=== PATIENT | female | born 1945 | race Two or more races ===

== ENCOUNTER 2018-04-18 13:39 | Emergency (ER) | payer OTHER ==
[~2018-04-18] VITALS: Ht 160 cm; Wt 83.5 kg
[2018-04-18] MEDS ORDERED: LIPITOR20 MG PO (14:08)
[2018-04-18] MEDS ORDERED: ASPIR 8181 MG PO (14:09)
[2018-04-18] MEDS ORDERED: DITROPAN XL10 MG PO (14:10)
== END 2018-04-18 20:32 | disposition home or self-care (01) ==
LOC: ER 13:39 → EDBD 14:20 → ER 14:20
DX: J45.901 Unspecified asthma with (acute) exacerbation (principal)

== ENCOUNTER 2018-04-20 14:53 | Inpatient (IN) | payer OTHER ==
[~2018-04-20] VITALS: Ht 160 cm; Wt 83.5 kg
[~2018-04-20 14:53] MED LIST: ASPIR 8181 MG PO; DITROPAN XL10 MG PO; LIPITOR20 MG PO
== END 2018-04-24 13:09 | disposition home or self-care (01) | DRG 202 ==
LOC: ER 14:53 → EDBD 15:11 → ER 15:11 → MEDJ 21:37
PROC: 4A033R1 Measurement of Arterial Saturation, Peripheral, Percutaneous Approach (ICD-10-PCS; principal; 2018-04-20)
PROC: 3E0F7GC Introduction of Other Therapeutic Substance into Respiratory Tract, Via Natural or Artificial Opening (ICD-10-PCS; 2018-04-20)
DX: J45.42 Moderate persistent asthma with status asthmaticus (principal); J44.1 Chronic obstructive pulmonary disease with (acute) exacerbation; R06.03 Acute respiratory distress

== ENCOUNTER 2019-03-31 07:06 | Outpatient (CLI) | payer OTHER | END 2019-03-31 07:12 | disposition home or self-care (01) | LOC: SONOGRAMA 07:06 | DX: E04.2 Nontoxic multinodular goiter (principal) ==

== ENCOUNTER 2019-05-22 10:11 | Emergency (ER) | payer OTHER ==
[~2019-05-22] VITALS: Ht 160 cm; Wt 83.9 kg
== END 2019-05-22 14:15 | disposition home or self-care (01) ==
LOC: ER 10:11
DX: J45.901 Unspecified asthma with (acute) exacerbation (principal)

== ENCOUNTER 2019-05-26 10:09 | Emergency (ER) | payer OTHER ==
[~2019-05-26] VITALS: Ht 160 cm; Wt 83.0 kg
== END 2019-05-26 15:53 | disposition home or self-care (01) ==
LOC: ER 10:09
DX: J45.998 Other asthma (principal)

== ENCOUNTER 2021-05-05 12:38 | Emergency (ER) | payer OTHER ==
[~2021-05-05] VITALS: Ht 160 cm; Wt 84.4 kg
[2021-05-05] MEDS ORDERED: PROAIR HFA8.5 GM IH (13:04)
[2021-05-05] MEDS ORDERED: OMEPRAZOLE40 MG PO (13:04)
[2021-05-05] MEDS ORDERED: QVAR REDIHALE10.6 G1 (13:05)
[2021-05-05] MEDS ORDERED: TENCON 50-3251 EACH PO (15:56)
== END 2021-05-05 17:45 | disposition home or self-care (01) ==
LOC: ER 12:38
DX: S00.83XA Contusion of other part of head, initial encounter (principal); S90.01XA Contusion of right ankle, initial encounter; W18.09XA Striking against other object with subsequent fall, initial encounter; Y93.89 Activity, other specified; Y92.89 Other specified places as the place of occurrence of the external cause; Y99.8 Other external cause status

== ENCOUNTER 2021-05-09 12:16 | Emergency (ER) | payer OTHER ==
[~2021-05-09] VITALS: Ht 167.6 cm; Wt 84.4 kg
[~2021-05-09 12:16] MED LIST changes: +OMEPRAZOLE40 MG PO; +PROAIR HFA8.5 GM IH; +QVAR REDIHALE10.6 G1; +TENCON 50-3251 EACH PO
[2021-05-09] MEDS ORDERED: METOCLOPRAMIDE10 MG PO (17:47)
[2021-05-09] MEDS ORDERED: KETO10TA2 PO (17:48)
== END 2021-05-09 19:47 | disposition home or self-care (01) ==
LOC: ER 12:16
DX: G89.11 Acute pain due to trauma (principal); G44.311 Acute post-traumatic headache, intractable; R42 Dizziness and giddiness

== ENCOUNTER 2021-08-27 15:04 | Emergency (ER) | payer OTHER ==
[~2021-08-27] VITALS: Ht 160 cm; Wt 82.6 kg
[~2021-08-27 15:04] MED LIST changes: +KETO10TA2 PO; +METOCLOPRAMIDE10 MG PO
== END 2021-08-27 20:35 | disposition home or self-care (01) ==
LOC: ER 15:04
DX: S70.01XA Contusion of right hip, initial encounter (principal); M79.604 Pain in right leg; R55 Syncope and collapse; W18.09XA Striking against other object with subsequent fall, initial encounter; Y93.E2 Activity, laundry; Y92.018 Other place in single-family (private) house as the place of occurrence of the external cause; Y99.8 Other external cause status

== ENCOUNTER 2021-11-01 07:30 | Inpatient (IN) | payer OTHER ==
[~2021-11-01] VITALS: Ht 160 cm; Wt 84.4 kg
[2021-11-01] MEDS ORDERED: LIPITOR PO (08:47)
[2021-11-01] MEDS ORDERED: VITAMIN B SL (08:48)
[2021-11-01] MEDS ORDERED: VITAMIN C100 MG PO (08:48)
[2021-11-01] MEDS ORDERED: CENTRUM PO (08:48)
[2021-11-01] MEDS ORDERED: CALTRATE PO (08:49)
[2021-11-05] MEDS ORDERED: FOLIC ACID0.4 MG (08:30)
[2021-11-05] MEDS ORDERED: GABAPENTIN300 M2 (08:30)
[2021-11-05] MEDS ORDERED: PROAIR HFA8.5 GM (08:32)
[2021-11-05] MEDS ORDERED: QVAR REDIHALE10.6 G1 (08:32)
[2021-11-05] MEDS ORDERED: CLOTRIMAZOLE-BE15 G1 (08:33)
[2021-11-05] MEDS ORDERED: MECLIZINE HCL25 MG (08:33)
[2021-11-05] MEDS ORDERED: OPTIVE EYE DROP15 ML (08:34)
[2021-11-05] MEDS ORDERED: RESTASIS1 EACH (08:34)
[2021-11-05] MEDS ORDERED: OMEPRAZOLE40 MG (08:34)
[2021-11-05] MEDS ORDERED: CALTRATE 600 +1 EAC1 (09:38)
[2021-11-05] MEDS ORDERED: CENTRUM ADULTS1 EACH (09:38)
[2021-11-05] MEDS ORDERED: ATORVASTATIN CA10 MG PO (09:39)
[2021-11-05] MEDS ORDERED: B COMPLEX1 EACH (09:39)
[2021-11-05] MEDS ORDERED: REFRESH OPTIVE1 EAC2 (09:40)
[2021-11-05] MEDS ORDERED: LATANOPROST2.5 ML (09:40)
[2021-11-05] MEDS ORDERED: AYR SALINE50 M2 (09:41)
[2021-11-05] MEDS ORDERED: LUMIGAN2.5 M1 (09:41)
[2021-11-05] MEDS ORDERED: B-122500 MCG (09:41)
[2021-11-07] MEDS ORDERED: PERCOCET 5-3251 EACH PO (19:08)
[2021-11-07] MEDS ORDERED: CIPRO500 MG PO (19:08)
[2021-11-07] MEDS ORDERED: ELIQUIS2.5 MG PO (19:08)
[2021-11-08] MEDS ORDERED: CIPRO500 MG PO (08:07)
[2021-11-08] MEDS ORDERED: ELIQUIS2.5 MG PO (08:07)
[2021-11-08] MEDS ORDERED: PERCOCET 5-3251 EACH PO (08:07)
== END 2021-11-08 17:54 | DRG 470 ==
LOC: SURG 11-05 06:00 → O/R 11-05 06:00 → SURH 11-05 07:00 → SURG 11-05 13:58 → SURH 11-06 15:16
PROVIDERS: ADMIT Orthopaedic Surgery; ATTEND Orthopaedic Surgery
PROC: 0SRC0J9 Replacement of Right Knee Joint with Synthetic Substitute, Cemented, Open Approach (ICD-10-PCS; principal; 2021-11-05 07:00)
DX: M17.11 Unilateral primary osteoarthritis, right knee (principal); J44.1 Chronic obstructive pulmonary disease with (acute) exacerbation; M22.11 Recurrent subluxation of patella, right knee; Z20.822 Contact with and (suspected) exposure to COVID-19; I10 Essential (primary) hypertension; J45.998 Other asthma

== ENCOUNTER 2023-07-22 07:45 | Inpatient (IN) | payer OTHER ==
[~2023-07-22] VITALS: Ht 160 cm; Wt 81.6 kg
[~2023-07-22 07:45] MED LIST changes: +ATORVASTATIN CA10 MG PO; +AYR SALINE50 M2; +B COMPLEX1 EACH; +B-122500 MCG; +CALTRATE 600 +1 EAC1; +CALTRATE PO; +CENTRUM ADULTS1 EACH; +CENTRUM PO; +CIPRO500 MG PO; +CLOTRIMAZOLE-BE15 G1; +ELIQUIS2.5 MG PO; +FOLIC ACID0.4 MG; +GABAPENTIN300 M2; +LATANOPROST2.5 ML; +LIPITOR PO; +LUMIGAN2.5 M1; +MECLIZINE HCL25 MG; +OMEPRAZOLE40 MG; +OPTIVE EYE DROP15 ML; +PERCOCET 5-3251 EACH PO; +PROAIR HFA8.5 GM; +REFRESH OPTIVE1 EAC2; +RESTASIS1 EACH; +VITAMIN B SL; +VITAMIN C100 MG PO
[2023-07-22 09:28] LABS: HEMATOCRIT 38.5 % (36.0-45.00); HEMOGLOBIN 12.9 g/dL (12.0-15.00); MEAN CELL VOLUME 91.6 fL (80.00-100.00); MEAN CORPUSCULAR HEMOGLOBIN 30.7 pg (27.00-32.0); MEAN CORPUSCULAR HGB CONC 33.5 g/dl (32.0-36.0); PLATELET COUNT 178 K/uL (150-450); RED BLOOD COUNT 4.21 M/uL (4.00-6.00); RED CELL DISTRIBUTION WIDTH 14.4 % (11.5-14.5)
[2023-07-22 09:32] LABS: PH,URINE 6.5 (5.0-8.0); URINE APPEARANCE Clear; URINE BILIRRUBIN Negative (NEGATIVE); URINE BLOOD Negative; URINE COLOR Yellow; URINE GLUCOSE Negative (NEGATIVE); URINE LEUKOCYTE Negative; URINE NITRATE Negative; URINE PROTEIN Negative (NEGATIVE); URINE UROBILINOGEN 0.2 E.U./dl
[2023-07-22 09:38] LABS: URINE BACTERIA 167.5 uL (0.0-1933); URINE EPITHELIAL CELLS 5.7 uL (0.0-38.8); URINE WBC 2.1 uL (0.0-23.2)
[2023-07-22 10:16] LABS: INR 1.03; PARTIAL THROMBOPLASTIN TIME 25.9 SECONDS (22.0-34.0); PROTHROMBIN TIME 10.8 SECONDS (9.0-11.5)
[2023-07-22 10:25] LABS: ALBUMIN 3.6 gm/dL (3.4-5.0); BILIRUBIN TOTAL 0.37 mg/dL (0.3-1.2); CALCIUM 9.1 mg/dL (8.5-10.1); CREATININE SERUM 0.78 mg/dL (0.55-1.02); GFR 71.61; GLOBULINA 3.7 G/DL (2.4-3.5); POTASSIUM 4.11 mEq/L (3.5-5.1); TOTAL PROTEIN 7.3 gm/dL (6.4-8.2)
[2023-07-29 06:51] LABS: HEMATOCRIT 34.4 % (36.0-45.00); HEMOGLOBIN 11.6 g/dL (12.0-15.00); MEAN CELL VOLUME 92.1 fL (80.00-100.00); MEAN CORPUSCULAR HEMOGLOBIN 31.2 pg (27.00-32.0); MEAN CORPUSCULAR HGB CONC 33.8 g/dl (32.0-36.0); PLATELET COUNT 162 K/uL (150-450); RED BLOOD COUNT 3.73 M/uL (4.00-6.00); RED CELL DISTRIBUTION WIDTH 14.4 % (11.5-14.5)
[2023-07-29] MEDS ORDERED: PERCOCET 5-3251 EACH PO (06:57)
[2023-07-29] MEDS ORDERED: ELIQUIS2.5 MG PO (06:57)
[2023-07-29] MEDS ORDERED: CIPRO500 MG PO (06:57)
== END 2023-07-30 17:52 | DRG 470 ==
LOC: SURG 07-28 07:38 → O/R 07-28 07:38 → SURH 07-28 07:45 → SURG 07-28 10:14
PROVIDERS: ADMIT Orthopaedic Surgery; ATTEND Orthopaedic Surgery
PROC: 0SRD0J9 Replacement of Left Knee Joint with Synthetic Substitute, Cemented, Open Approach (ICD-10-PCS; principal; 2023-07-28 10:00)
DX: M17.12 Unilateral primary osteoarthritis, left knee (principal); D62 Acute posthemorrhagic anemia; M81.6 Localized osteoporosis [Lequesne]

== ENCOUNTER 2024-07-28 15:49 | Emergency (ER) | payer OTHER ==
[~2024-07-28] VITALS: Ht 160 cm; Wt 83.9 kg
[2024-07-28] MEDS ORDERED: IPRATROPIUM BROMIDE 0.5 MG/2.5 ML AMPUL.NEB IH ONE (16:45)
[2024-07-28] MEDS ORDERED: LEVALBUTEROL HCL 1.25 MG/3 ML SOLUTION IH ONE (16:45)
[2024-07-28] MEDS ORDERED: METHYLPREDNISOLONE SOD SUCC 40 MG VIAL IM ONE (16:45)
[2024-07-28] MEDS ORDERED: MAGNESIUM SULFATE IN WATER 2 GM/50 ML PIGGYBAG IV ONE (16:45)
[2024-07-28 18:21] LABS: HEMATOCRIT 36.8 % (36.0-45.00); HEMOGLOBIN 12.5 g/dL (12.0-15.00); MEAN CELL VOLUME 90.6 fL (80.00-100.00); MEAN CORPUSCULAR HEMOGLOBIN 30.8 pg (27.00-32.0); PLATELET COUNT 205 K/uL (150-450); RED BLOOD COUNT 4.07 M/uL (4.00-6.00)
[2024-07-28 19:16] LABS: ALBUMIN 3.7 gm/dL (3.4-5.0); BILIRUBIN TOTAL 0.32 mg/dL (0.3-1.2); CALCIUM 9.2 mg/dL (8.5-10.1); CREATININE SERUM 0.82 mg/dL (0.55-1.02); GFR 67.42; GLOBULINA 3.7 G/DL (2.4-3.5); POTASSIUM 4.11 mEq/L (3.5-5.1); TOTAL PROTEIN 7.4 gm/dL (6.4-8.2)
[2024-07-28 19:19] LABS: ABG PH 7.425 (7.35-7.45); ABG PO2 96.6 mmHg (80-100); ABG pCO2 35.2 mmHg (35-45); BASE EXCESS -1.2 mmol/l; BICARBONATE 22.6 mmol/l (23-25); SaO2 97.6 %
[2024-07-28 19:20] LABS: Tco2 23.6 mmol/l; allen test SATISFACTORY; o2 21 %; puncture site RADIAL RIGHT
[2024-07-28] MEDS ORDERED: AZITHROMYCIN500 MG PO (20:52)
[2024-07-28] MEDS ORDERED: MEDROLPACK PO (20:52)
[2024-07-28] MEDS ORDERED: SINGULAIR10 MG PO (20:54)
[2024-07-28 20:57] LABS: PH,URINE 5.5 (5.0-8.0); URINE APPEARANCE Clear; URINE BILIRRUBIN Negative (NEGATIVE); URINE BLOOD Negative; URINE COLOR Yellow; URINE GLUCOSE Negative (NEGATIVE); URINE KETONE Negative (NEGATIVE); URINE LEUKOCYTE Negative; URINE NITRATE Negative; URINE PROTEIN Negative (NEGATIVE); URINE UROBILINOGEN 0.2 E.U./dl
[2024-07-28 21:01] LABS: URINE BACTERIA 61.1 uL (0.0-1933); URINE EPITHELIAL CELLS 17.4 uL (0.0-38.8); URINE RBC 2.7 uL (0.0-20.8)
[2024-07-28 21:04] LABS: URINE WBC 1.7 uL (0.0-23.2)
== END 2024-07-28 21:18 | disposition home or self-care (01) ==
LOC: ER 15:51
PROVIDERS: General Practice
DX: R53.81 Other malaise (principal); J45.909 Unspecified asthma, uncomplicated; Z88.0 Allergy status to penicillin; Z20.822 Contact with and (suspected) exposure to COVID-19
CPT/HCPCS: 36415; 71250; 82803; 94640; 96365; 96372; 99284; J3475; J3490